=== PATIENT | male | born 1975 | race Caucasian/White ===

== ENCOUNTER 2023-12-09 03:20 | Emergency (ER) | payer BC, SELFPAY ==
[2023-12-09 03:28] VITALS: BP 172/99; PULSE 59; RESP 20; TEMP 36.5; O2SAT 98; BMI 40.2
[2023-12-09 03:42] LABS: Basophils # 0.1 10^3/uL (0.0-0.1); Basophils % 0.5 %; Eosinophils # 0.1 10^3/uL (0.0-0.8); Eosinophils % 0.6 %; Hematocrit 49.4 % (37-53); Lymphocytes % 20.2 %; Mean Corpuscular HGB Conc 33.8 g/dL (30-55); Mean Corpuscular Hemoglobin 29.3 pg (27-33); Mean Corpuscular Volume 86.7 fl (82-101); Mean Platelet Volume 9.9 fL (7.4-10.4); Monocytes # 0.5 10^3/uL (0.2-0.9); Monocytes % 5.5 %; Neutrophils # 7.21 10^3/uL (1.8-7.7); Nucleated Red Blood Cells % 0 %; Platelet Count 292 10^3/cmm (157-399); Red Cell Distribution Width 12.5 % (12.1-15.1); White Blood Count 9.87 10^3/uL (3.29-11.43)
--- NOTE | 2023-12-09 04:00 | CTR_ITS ---
PROCEDURE INFORMATION: Exam: CT Abdomen And Pelvis With Contrast Exam date and time: 12/09/2023 4:06 AM Age: 48 years old Clinical indication: Abdominal pain; Localized; Right upper quadrant (ruq); Patient HX: C/O ruq pain starting last night. TECHNIQUE: Imaging protocol: Computed tomography of the abdomen and pelvis with contrast. Radiation optimization: All CT scans at this facility use at least one of these dose optimization techniques: automated exposure control; mA and/or kV adjustment per patient size (includes targeted exams where dose is matched to clinical indication); or iterative reconstruction. Contrast material: OMNI 350; Contrast volume: 100 ml; Contrast route: INTRAVENOUS (IV); COMPARISON: No relevant prior studies available. RADIATION DOSE METRICS: Total DLP (mGy-cm): 1286.53 FINDINGS: Lungs: No consolidation in the visualized lung bases. Liver: No hepatomegaly. There are no enhancing liver masses. Gallbladder and biliary ducts: The gallbladder is mildly distended. There are sludge or small calculi in the gallbladder lumen. There is mild thickening of the gallbladder wall, particularly in the area of the neck. Pancreas: Normal in size and homogeneous enhancement. No ductal dilation. Spleen: Normal. No splenomegaly. Adrenal glands: Normal. No mass. Kidneys and ureters: There is no hydronephrosis. No renal or obstructing ureteral calculi. Stomach and bowel: There is moderate fecal burden in the rectosigmoid. Mild thickening of the rectosigmoid wall that may be secondary to stercoral proctocolitis. Appendix: No evidence of appendicitis. Intraperitoneal space: No free air. No significant fluid collection. Vasculature: There is no abdominal aortic aneurysm. Lymph nodes: No enlarged retroperitoneal or mesenteric lymph nodes. Urinary bladder: The bladder shows a normal contour and is free of calcific opacities. Reproductive: Unremarkable as visualized. Bones/joints: No acute fracture. Degenerative disc disease and vacuum disc at L5-S1. Soft tissues: Normal. CT/CT abdomen pelvis w con* [id number] IMPRESSION: 1. Cholelithiasis with possible cholecystitis. Right upper quadrant ultrasound may be helpful for further characterization if clinically indicated. 2. There is moderate fecal burden in the rectosigmoid. Mild thickening of the rectosigmoid wall may be secondary to stercoral proctocolitis.
[2023-12-09 04:04] LABS: Alanine Aminotransferase 20 U/L (0-41); Albumin Level 4.2 g/dL (3.5-5.2); Alkaline Phosphatase 82 U/L (40-130); Anion Gap 17.2 (5-19); Aspartate Amino Transferase 17 U/L (0-40); Blood Urea Nitrogen 16 mg/dL (6-20); Calcium 9.6 mg/dL (8.5-10.5); Carbon Dioxide 22 mmol/L (22-29); Chloride 105 mmol/L (98-107); Globulin 3.8 g/dL (1.3-4.6); Glomerular Filtration Rate 89.7 mL/min (90-130); Glucose 116 mg/dL (65-115); Lipase 23 U/L (13-60); Osmolality Calculated 292 mOsm/kg (285-295); Potassium 4.2 mmol/L (3.5-5.1); Sodium 140 mmol/L (136-145); Total Bilirubin 0.4 mg/dL (0.15-1.2)
[2023-12-09] MEDS: iohexol 350 mg/mL 500 mL Btl (per mL) IV (04:08)
[2023-12-09] MEDS: ondansetron 2 mg/ML SDV 2 mL 4 MG IVP (04:14)
[2023-12-09] MEDS: ketorolac 30 mg/mL INJ IVP (04:14)
[2023-12-09 04:16] LABS: Add Urine Microscopic? YES; Amorphous Sediment Urine 2+ /hpf; Bacteria Urine 2+ /hpf; Bilirubin Urine Neg (Negative); Blood Urine Neg (Negative); Glucose Urine UA Norm (Normal); Ketones Urine Negative (Negative); Leukocyte Esterase Urine Trace (Negative); Nitrate Urine Negative (Negative); Protein Urine Neg (Negative); RBC Urine 0-4 /hpf (0-2); Specific Gravity, Urine 1.015 (1.005-1.030); Squamous Epithelial Cell Urine 0-4 /hpf (0-5); Urine Appearance Turbid (CLEAR); Urine Color Dark Yellow (Yellow); Urobilinogen Urine Neg (Negative); WBC Urine 0-4 /hpf (0-5); pH Urine 8 (5-7)
[2023-12-09 04:45] VITALS: BP 144/76; PULSE 60; RESP 16; O2SAT 97
[2023-12-09 05:00] VITALS: BP 134/86; PULSE 58; RESP 14; O2SAT 92
--- NOTE | 2023-12-09 05:27 | W.ED.ABDPA2 ---
HPI - Abdominal Pain General: Chief Complaint: Abdominal Pain Stated Complaint: abd pain right center weak tingly everywhere Time Seen by Provider: 12/09/23 03:40 History of Present Illness: 48-year-old male who is healthy. He presents with right upper quadrant pain that started last night. It is remained constant. He has nausea. He has not vomited. No shortness of breath. No fever. No blood in the stool. No history of abdominal surgery. Physical Exam Const: COMMON NORMALS: no acute distress GENERAL APPEARANCE: cooperative; not ill appearing and not frail appearing HENMT: COMMON NORMALS: normocephalic, atraumatic and Normal external nose present HEAD & SCALP: normocephalic and atraumatic FACE & SINUS: normal facial exam and face symmetric NOSE: Normal external nose present Eye: COMMON NORMALS: Equal, round and reactive pupils present and EOMs intact bilaterally PUPIL: Yes Equal, round and reactive pupils present Neck/C-Spine: GENERAL: Yes trachea midline Chest: CHEST: Yes Symmetrical chest wall rise Resp: COMMON NORMALS: normal respiratory effort, No retractions, No use of accessory muscles and clear to auscultation bilaterally AUSCULTATION: clear to auscultation bilaterally Cardio: COMMON NORMALS: regular rate and regular rhythm RATE: regular rate RHYTHM: regular rhythm GI: COMMON NORMALS: Normal to inspection, nondistended, normoactive bowel sounds present PALPATION: Yes Tenderness to palpation present (GI) Details: RUQ and Yes Guarding due to palpation present (GI) Extremity: COMMON NORMALS: no pedal edema Neuro: SHOAIB COMA SCALE: document GCS findings Shoaib coma scale eye opening: Spontaneous [place] coma scale verbal response: Orientated [place] coma scale motor response: Obey commands Eldridge coma scale total score: 15 SENSORY EXAM: Yes extremities (intact) Psych: COMMON NORMALS: speech normal SPEECH: Yes normal speech Skin: COMMON NORMALS: no rashes or lesions noted GENERAL SKIN EXAM: no rashes or lesions noted Course Vital Signs: Vital signs: Vital Signs Temperature 97.7 F 12/09/23 03:28 Pulse Rate 59 L 12/09/23 05:30 Respiratory Rate 16 12/09/23 05:30 Blood Pressure 129/84 12/09/23 05:30 Pulse Oximetry 93 12/09/23 05:30 MDM - Abdominal Pain Medical Decision Making Patient is tender with guarding in the right upper quadrant. His white blood cell count is 10. CRP is 7. Liver enzymes are nonremarkable. Urinalysis shows 0-[address] of the abdomen pelvis is pending. CT scan shows cholelithiasis, with mild wall thickening. No common bile duct dilatation. No elevation in liver enzymes. The patient has minimal to no pain at this point. No nausea. I spoke with the surgeon on-call. Recommendations are Augmentin for 10 days, close outpatient follow-up with him. Patient will call the surgery clinic for follow-up on Monday. Lab Data 12/09/23 03:37 12/09/23 03:37 Labs/Radiology: Radiology Impressions Abdomen/Pelvis CT 12/09/23 04:00 IMPRESSION: 1. Cholelithiasis with possible cholecystitis. Right upper quadrant ultrasound may be helpful for further characterization if clinically indicated. 2. There is moderate fecal burden in the rectosigmoid. Mild thickening of the rectosigmoid wall may be secondary to stercoral proctocolitis. ADDENDUM: 12/09/23 0543 Findings were discussed with GIANLUCA PADILLA at 12/09/2023 5:41 AM CDT. Laboratory Results WBC 9.87 10^3/uL (3.29-11.43) 12/09/23 03:37 RBC 5.70 10^6/uL (3.85-5.65) H 12/09/23 03:37 Hgb 16.70 g/dL (11.27-16.99) 12/09/23 03:37 Hct 49.4 % (37-53) 12/09/23 03:37 MCV 86.7 fl (82-101) 12/09/23 03:37 MCH 29.3 pg (27-33) 12/09/23 03:37 MCHC 33.8 g/dL (30-55) 12/09/23 03:37 RDW 12.5 % (12.1-15.1) 12/09/23 03:37 Plt Count 292 10^3/cmm (157-399) 12/09/23 03:37 MPV 9.9 fL (7.4-10.4) 12/09/23 03:37 Neut % (Auto) 73.0 % 12/09/23 03:37 Lymph % (Auto) 20.2 % 12/09/23 03:37 [place] % (Auto) 5.5 % 12/09/23 03:37 Eos % (Auto) 0.6 % 12/09/23 03:37 Baso % (Auto) 0.5 % 12/09/23 03:37 Neut # (Auto) 7.21 10^3/uL (1.8-7.7) 12/09/23 03:37 Lymph # (Auto) 2.0 10^3/uL (0.8-4.8) 12/09/23 03:37 [place] # (Auto) 0.5 10^3/uL (0.2-0.9) 12/09/23 03:37 Eos # (Auto) 0.1 10^3/uL (0.0-0.8) 12/09/23 03:37 Baso # (Auto) 0.1 10^3/uL (0.0-0.1) 12/09/23 03:37 Nucleated RBC % (auto) 0 % 12/09/23 03:37 Nucleated RBCs # 0.0 /100WBC 12/09/23 03:37 Sodium 140 mmol/L (136-145) 12/09/23 03:37 Potassium 4.2 mmol/L (3.5-5.1) 12/09/23 03:37 Chloride 105 mmol/L (98-107) 12/09/23 03:37 Carbon Dioxide 22 mmol/L (22-29) 12/09/23 03:37 Anion Gap 17.2 (5-19) 12/09/23 03:37 BUN 16 mg/dL (6-20) 12/09/23 03:37 Creatinine 0.9 mg/dL (0.7-1.2) 12/09/23 03:37 GFR Calculation 89.7 mL/min (90-130) L 12/09/23 03:37 Glucose 116 mg/dL (65-115) H 12/09/23 03:37 Calculated Osmolality 292 mOsm/kg (285-295) 12/09/23 03:37 Calcium 9.6 mg/dL (8.5-10.5) 12/09/23 03:37 Total Bilirubin 0.4 mg/dL (0.15-1.2) 12/09/23 03:37 AST 17 U/L (0-40) 12/09/23 03:37 ALT 20 U/L (0-41) 12/09/23 03:37 Alkaline Phosphatase 82 U/L (40-130) 12/09/23 03:37 C-Reactive Protein 7.0 mg/L (0.0-4.9) H 12/09/23 03:37 Total Protein 8.0 g/dL (6.6-8.7) 12/09/23 03:37 Albumin 4.2 g/dL (3.5-5.2) 12/09/23 03:37 Globulin 3.8 g/dL (1.3-4.6) 12/09/23 03:37 Lipase 23 U/L (13-60) 12/09/23 03:37 Urine Color Dark yellow (Yellow) A 12/09/23 04:02 Urine Appearance Turbid (CLEAR) A 12/09/23 04:02 Urine pH 8 (5-7) H 12/09/23 04:02 Ur Specific [place] 1.015 (1.005-1.030) 12/09/23 04:02 Urine Protein Neg (Negative) 12/09/23 04:02 Urine Glucose (UA) Norm (Normal) 12/09/23 04:02 Urine Ketones Negative (Negative) 12/09/23 04:02 Urine Blood Neg (Negative) 12/09/23 04:02 Urine Nitrate Negative (Negative) 12/09/23 04:02 Urine Bilirubin Neg (Negative) 12/09/23 04:02 Urine Urobilinogen Neg mg/dL (Negative) 12/09/23 04:02 Ur Leukocyte Esterase Trace (Negative) H 12/09/23 04:02 Urine RBC 0-4 /hpf (0-2) H 12/09/23 04:02 Urine WBC 0-4 /hpf (0-5) H 12/09/23 04:02 Ur Squamous Epith Cells 0-4 /hpf (0-5) H 12/09/23 04:02 Amorphous Sediment 2+ /hpf 12/09/23 04:02 Urine Bacteria 2+ /hpf (NONE) H 12/09/23 04:02 All radiology interpretation(s) finalized by discharge Discharge Plan Discharge Patient Disposition: Home Clinical Impression: Biliary colic Condition: Stable Prescriptions: New amoxicillin-pot clavulanate 875-125 mg tablet 1 tab PO BID Qty: 20 0RF ondansetron 4 mg tablet,disintegrating 4 mg PO Q6H PRN (Reason: nausea and vomiting) Qty: 14 0RF hydrocodone-acetaminophen 5-325 mg tablet 1 tab PO Q8H PRN (Reason: pain) Qty: 7 0RF Discharge Orders: Discharge ED (Routine); Ordered 12/09/23 Ordered By: Gianluca Padilla Referrals: Jean-Pierre Aldana DO [Physician] - 4-7 days Deann Molina [Primary Care Provider] - Patient Instructions: Abdominal Pain (ED), Opioid Safety, Pain Management Activity Restrictions/Additional Instructions: Antibiotics as directed. You may take pain and nausea medication as needed. Return for fever greater than 100, worsening pain despite treatment, vomiting liquids or medications, yellowing of the eyes, any other concerning symptoms. Call the surgery clinic on Monday at the number above for a follow-up appointment. Coding Level of Care Code ED Bead Picker for Bar Gómez
[2023-12-09 05:30] VITALS: BP 129/84; PULSE 59; RESP 16; O2SAT 93
== END 2023-12-09 06:12 | disposition home or self-care (01) ==
PROVIDERS: Emergency Provider Emergency Medicine; PCP Nurse Practitioner Family
DX: K80.20 Calculus of gallbladder without cholecystitis without obstruction (principal)
CPT/HCPCS: 74177; 80053; 81001; 83690; 85025; 86140; 96374; 96375; 99285; J1885; J2405; Q9967

== ENCOUNTER 2024-01-09 06:23 | Day surgery (SDC) | payer BC, SELFPAY ==
[2024-01-09] VITALS (11 sets, daily range): BP systolic 118–147; BP diastolic 73–93; PULSE 51–78; RESP 11–20; TEMP 36.4–36.6; O2SAT 90–97; BMI 38.9
--- NOTE | 2024-01-09 06:55 | ANES.PREANE2 ---
Pre-Anesthetic Assessment Height/Weight: Height 6 ft 1 in Weight 295 lb Temp Pulse Resp BP Pulse Ox O2 Del Method 98 F 51 L 18 118/78 97 Room Air 01/09/24 06:42 01/09/24 06:42 01/09/24 06:42 01/09/24 06:42 01/09/24 06:42 01/09/24 06:42 Operation Date: 01/09/24 08:00 Proposed Procedures p Laparoscopic Cholecystectomy 52079, K80.20(Not Applicable) - Jean-Pierre Aldana DO Anesthetic Plan Other: No past anesthesia history NPO since midnight Patient denies pulmonary or cardiac issues Labs reviewed 12/08 Plan for GETA Medications/Allergies Home Medications Medication Instructions Recorded Confirmed Last Taken Type hydrocodone 5 mg-acetaminophen 325 1 tab PO Q8H PRN pain #7 tabs 12/09/23 01/08/24 Unknown Rx mg tablet ondansetron 4 mg disintegrating 4 mg PO Q6H PRN nausea and 12/09/23 01/08/24 01/05/24 Rx tablet vomiting #14 tabs Allergies Allergy/AdvReac Type Severity Reaction Status Date / Time Shell Fish Allergy Mild ADR-Itching Uncoded 01/01/24 08:10 PFSH Anesthesia Medical History (Updated 01/01/24 @ 08:32 by Jean-Pierre Aldana DO) Family history of colon cancer Social History Smoking and tobacco/nicotine status: current every day tobacco/nicotine user (uses nicotine pouches) Data Anesthesia Cardiac Studies: No Data to Display
--- NOTE | 2024-01-09 06:55 | W.PM.OPSUD ---
Surgery/Procedure H&P Update DATE OF PROCEDURE: January 09, 2024 DATE H&P PERFORMED: 01/01/24 H&P UPDATE INFORMATION: I have reviewed H&P completed within last 30 days, I have examined patient prior to procedure and No changes to prior documentation PLANNED PROCEDURE: Operation Date: 01/09/24 08:00 Proposed Procedures p Laparoscopic Cholecystectomy 41219, K80.20(Not Applicable) - Jean-Pierre Aldana,
[2024-01-09] MEDS: sodium chloride 0.9% 1,000 ML 30 ML IV (07:18)
--- NOTE | 2024-01-09 07:30 | ANES.PREANE2 ---
Pre-Anesthetic Assessment Height/Weight: Height 1.85 m Weight 133.81 kg Temp Pulse Resp BP Pulse Ox O2 Del Method 98 F 51 L 18 118/78 97 Room Air 01/09/24 06:42 01/09/24 06:42 01/09/24 06:42 01/09/24 06:42 01/09/24 06:42 01/09/24 06:47 Operation Date: 01/09/24 08:00 Proposed Procedures p Laparoscopic Cholecystectomy 38645, K80.20(Not Applicable) - Jean-Pierre Aldana DO Familial anesthetic complications: None Was Beta Damien taken within 24 hours: N/A Was Clonidine taken within 24 hours: N/A Last intake: Intake Last Liquid Date 01/08/24 Last Liquid Time 23:30 Last Solid Date 01/08/24 Last Solid Time 19:30 Social Alcohol (Occasional beer) and No tobacco Exam alert, oriented x 3, clear to auscultation bilaterally and regular rate & rhythm Airway Submandibular: within normal limits Cervical ROM: within normal limits Mallampati: Class II Dentition: full History/ROS No significant history except as noted and No significant complaints Pulmonary None reported CV/HEM None reported None reported Hepatic None reported GI Gastroesophageal Reflux Disease Metabolic Morbid Obesity Musc/skel None reported Neuropsych None reported Anesthetic Plan ASA status: 2 Anesthesia: Anesthesia Evaluation and General Risk of > 500 ml blood loss (7ml/kg in children): No Medications/Allergies Home Medications Medication Instructions Recorded Confirmed Last Taken Type hydrocodone 5 mg-acetaminophen 325 1 tab PO Q8H PRN pain #7 tabs 12/09/23 01/08/24 Unknown Rx mg tablet ondansetron 4 mg disintegrating 4 mg PO Q6H PRN nausea and 12/09/23 01/08/24 01/05/24 Rx tablet vomiting #14 tabs Allergies Allergy/AdvReac Type Severity Reaction Status Date / Time Shell Fish Allergy Mild ADR-Itching Uncoded 01/01/24 08:10 Current Medications Generic Name Dose Route Start Last Admin Trade Name Freq PRN Reason Stop Dose Admin Sodium Chloride 1,000 mls @ 30 mls/hr 01/09/24 06:30 01/09/24 07:18 Sodium Chloride 0.9% IV 01/10/24 06:29 30 mls/hr .Q24H QUANG Administration PFSH Anesthesia Medical History (Updated 01/01/24 @ 08:32 by Jean-Pierre Aldana DO) Family history of colon cancer Social History Smoking and tobacco/nicotine status: current every day tobacco/nicotine user (uses nicotine pouches) Data Anesthesia Cardiac Studies: No Data to Display
[2024-01-09] MEDS: ceFAZolin 3,000 MG in sodium chloride 0.9% (plus) 100 ML 200 MG IV (08:17)
[2024-01-09] MEDS: lidocaine-epi 1% PF 1:200,000 30 mL SDV INJECTION (08:17)
--- NOTE | 2024-01-09 09:04 | P.OP_ITS ---
Operative Report Date of procedure: January 09, 2024 Surgeon: Jean-Pierre Aldana DO Procedure: Preoperative diagnosis: S chronic calculous cholecystitis Postoperative diagnosis: Same Procedure performed: Laparoscopic cholecystectomy Surgeon: Dr. Jean-Pierre Aldana DO Estimated blood loss: 20 mL Implants: Surgicel x 2 Specimens: Gallbladder to pathology Complications: None apparent Description of procedure: Patient was wheeled into the operative room and placed on the OR table in a supine position. Abdomen was inspected prepped and draped in usual sterile fashion. Time-out was performed and all present were in agreement. A 15 blade scalp was used to make a stab incision in the left upper quadrant and intra- abdominal insufflation was achieved using a Veress needle. After localizing the tissue incisions were made and a 5 millimeter trocar was placed into the umbilicus as well as 2 in the right upper quadrant. A 12 millimeter trocar was placed in the epigastrium. Gallbladder was grasped and elevated. The gallbladder was quite hard and inflamed. There were significant adhesions that had to be taken down between the omentum and gallbladder. The triangle of Calot was carefully dissected using blunt dissection and electrocautery until the triangle of Calot clearly identified. The cystic duct was clipped proximally and double clipped distally. The duct was then ligated proximally. The cystic artery was doubly clipped and ligated. The gallbladder was then removed from the liver bed using electrocautery. The gallbladder was partly intrahepatic and there was 20 cc of blood loss during the procedure. 2 pieces of Surgicel were placed into the gallbladder fossa to aid hemostasis. The gallbladder was removed from the abdomen using an Endo-Catch bag through the epigastric incision. The liver bed was inspected and no bleeding was seen. The abdomen was irrigated and suctioned. All ports removed. Skin was washed and dried. Incisions were closed with 4-0 Monocryl in a subcuticular interrupted fashion. Skin glue was applied. Patient tolerated the procedure well.
--- NOTE | 2024-01-09 10:45 | ANE.PACU2 ---
Inpatient post-anesthesia follow up: Airway intact: Yes Vital signs: Temperature 97.8 F Pulse Rate 71 Respiratory Rate 17 Blood Pressure 134/90 Pulse Oximetry 91 Oxygen Delivery Me thod Room Air Oxygen Flow Rate 8 Fraction of Inspir ed Oxygen Hydration adequate: Yes Nausea and vomiting: No Pain level: 1 Mental status: Baseline
== END 2024-01-09 10:45 | disposition home or self-care (01) ==
PROVIDERS: PCP Nurse Practitioner Family; Visit Provider Surgery
PROC: 0FT44ZZ Resection of Gallbladder, Percutaneous Endoscopic Approach (ICD-10-PCS; CPT 47562; principal; 2024-01-09 08:00)
DX: K80.10 Calculus of gallbladder with chronic cholecystitis without obstruction (principal); K21.9 Gastro-esophageal reflux disease without esophagitis; E66.01 Morbid (severe) obesity due to excess calories; Z68.30 Body mass index [BMI] 30.0-30.9, adult; Z80.0 Family history of malignant neoplasm of digestive organs
CPT/HCPCS: 47562; 88304; J0131; J0330; J0690; J1100; J1170; J1200; J1885; J2250; J2371; J2405; J2704; J3010; J3490; J7030

== ENCOUNTER 2024-02-07 07:55 | Day surgery (SDC) | payer BC, SELFPAY ==
[2024-02-07 08:09] VITALS: BP 124/80; PULSE 65; RESP 18; TEMP 36.1; O2SAT 98
[2024-02-07] MEDS: sodium chloride 0.9% 1,000 ML 30 ML IV (08:26)
--- NOTE | 2024-02-07 08:27 | P.ANESASSM_ITS ---
Pre-Anesthetic Assessment Height/Weight: Height 1.85 m Weight 136.078 kg Temp Pulse Resp BP Pulse Ox O2 Del Method 97.0 F L 65 18 124/80 98 Room Air 02/07/24 08:09 02/07/24 08:09 02/07/24 08:09 02/07/24 08:09 02/07/24 08:09 02/07/24 08:09 Preop Diagnosis: Screening Operation Date: 02/07/24 09:00 Proposed Procedures p Colonoscopy 84288, G0105, Z80.0(Not Applicable) - Jean-Pierre Aldana, DO Was Beta Damien taken within 24 hours: N/A Was Clonidine taken within 24 hours: N/A Last intake: Intake Last Liquid Date 02/06/24 Last Liquid Time 21:30 Last Solid Date 02/05/24 Last Solid Time 19:00 Social Alcohol Exam alert, oriented x 3, clear to auscultation bilaterally and regular rate & rhythm Airway Submandibular: within normal limits Cervical ROM: within normal limits Mallampati: Class II Dentition: full History/ROS No significant history except as noted and No significant complaints Pulmonary None reported CV/HEM None reported None reported Hepatic None reported Metabolic Morbid Obesity [facility] [place] None reported Neuropsych None reported Anesthetic Plan ASA status: 2 Anesthesia: Anesthesia Evaluation and MAC Risk of > 500 ml blood loss (7ml/kg in children): No Medications/Allergies Home Medications Medication Instructions Recorded Confirmed Last Taken Type No Known Home Medications 02/05/24 02/05/24 Unknown History Allergies Allergy/AdvReac Type Severity Reaction Status Date / Time Shell Fish Allergy Mild ADR-Itching Uncoded 02/05/24 12:10 Current Medications Generic Name Dose Route Start Last Admin Trade Name Freq PRN Reason Stop Dose Admin Sodium Chloride 1,000 mls @ 30 mls/hr 02/07/24 08:15 02/07/24 08:26 Sodium Chloride 0.9% IV 02/08/24 08:14 30 mls/hr .Q24H QUANG Administration PFSH Anesthesia Medical History Family history of colon cancer Social History Smoking and tobacco/nicotine status: current every day tobacco/nicotine user (uses nicotine pouches) Data Anesthesia Cardiac Studies: No Data to Display
--- NOTE | 2024-02-07 09:04 | PM.HP ---
Providers/Chief Complaint Primary Care Provider: Deann Molina Chief Complaint: Z80.0 History of Present Illness Dhruv Davis is a 49 year old male Review of Systems General: Reports: 10 or more systems reviewed and unremarkable except in HPI and below Medications/Allergies Home Medications Medication Instructions Recorded Confirmed Last Taken Type No Known Home Medications 02/05/24 02/05/24 Unknown History Allergies Allergy/AdvReac Type Severity Reaction Status Date / Time Shell Fish Allergy Mild ADR-Itching Uncoded 02/05/24 12:10 PFSH Acute PFSH: Medical History Family history of colon cancer Social History Smoking and tobacco/nicotine status: current every day tobacco/nicotine user (uses nicotine pouches) Vitals/I&O/Wt Last Vital Signs Temp 97.0 F L 02/07/24 08:09 Pulse 65 02/07/24 08:09 Resp 18 02/07/24 08:09 BP 124/80 02/07/24 08:09 Pulse Ox 98 02/07/24 08:09 O2 Del Method Room Air 02/07/24 08:09 Weight last 48 hrs Weight 300 lb A&P Assessment and plan (1) Family history of colon cancer: Plan Colonoscopy Attestations Medical Necessity Statement*: Home Coding Level of Care Code Acute Code for Chg Fwd Diagnoses Family history of colon cancer Z80.0
[2024-02-07 09:31] VITALS: BP 118/75; PULSE 73; RESP 16; TEMP 36.3; O2SAT 95
[2024-02-07 09:45] VITALS: BP 114/88; PULSE 65; RESP 18; O2SAT 100
--- NOTE | 2024-02-07 10:00 | ANE.PACU2 ---
Inpatient post-anesthesia follow up: Airway intact: Yes Vital signs: Temperature 97.4 F Pulse Rate 65 Respiratory Rate 18 Blood Pressure 114/88 Pulse Oximetry 100 Oxygen Delivery Me thod Nasal Cannula Oxygen Flow Rate 4 Fraction of Inspir ed Oxygen Hydration adequate: Yes Nausea and vomiting: No Pain level: 1 Mental status: Baseline
== END 2024-02-07 09:59 | disposition home or self-care (01) ==
PROVIDERS: PCP Nurse Practitioner Family; Visit Provider Surgery
PROC: 0DJD8ZZ Inspection of Lower Intestinal Tract, Via Natural or Artificial Opening Endoscopic (ICD-10-PCS; CPT 45378; principal; 2024-02-07 09:00)
DX: Z12.11 Encounter for screening for malignant neoplasm of colon (principal); Z80.0 Family history of malignant neoplasm of digestive organs; D12.5 Benign neoplasm of sigmoid colon; D12.3 Benign neoplasm of transverse colon; F17.200 Nicotine dependence, unspecified, uncomplicated
CPT/HCPCS: 45385; 88305; J2704; J7030